=== PATIENT | male | born 1995 | race African-American/Black ===

== ENCOUNTER 2018-09-13 14:58 | Emergency (ER) | payer SELFPAY ==
[2018-09-13 15:08] VITALS: BP 117/67
[2018-09-13] MEDS ORDERED: AZITHROMYCIN 250 MG TABLET PO ONE (15:21)
[2018-09-13] MEDS ORDERED: LIDOCAINE 1% INJ-PF (10 MG/ML) 30 ML SDV INJ ONE (15:21)
[2018-09-13] MEDS ORDERED: CEFTRIAXONE INJ 250 MG VIAL IM ONE (15:21)
--- NOTE | 2018-09-13 15:28 | ER Document Report ---
ED GI/ - General Chief Complaint: STD Exposure Stated Complaint: STD CHECK Time Seen by Provider: 09/13/18 15:11 Mode of Arrival: Ambulatory Information source: Patient Notes: 23-year-old man presents to ED for yellow-green discharge from his penis for 24 hours. He states he thinks he has a STD. He is alert and oriented respirations regular and unlabored speaking in full sentences walking with a even steady gait. He states there is a little pain with urination. TRAVEL OUTSIDE OF THE [place] IN LAST 30 DAYS: No - HPI Patient complains to provider of: Other - Now pain penile discharge Onset: Yesterday Timing/Duration: Gradual Quality of pain: Burning Severity at maximum: Mild Severity in ED: Mild Pain Level: 2 Location: Other - You were seen today for gout. Please take the second dose of colchicine that you were sent home with 1 hour after receiving yourfirst dose. Take ibuprofen 600 mg with Tylenol 1000 mg every 6 hours as needed for pain. Follow-up with your primary care doctor in the next several days. Return if you have fever greater than 100.4F, worsening pain, become unable to move the knee, or have any other symptoms that are worrisome to you. Associated symptoms: Penile discharge, Urinary frequency Exacerbated by: Other - Nation Relieved by: Denies Similar symptoms previously: No Recently seen / treated by doctor: No - Related Data Allergies/Adverse Reactions: No Known Allergies Allergy (Unverified 09/13/18 15:03) Past Medical History - General Information source: Patient - Social History Smoking Status: Current Every Day Smoker Cigarette use (# per day): Yes - 3-4-day Smoking Education Provided: Yes Frequency of alcohol use: Social Drug Abuse: None Lives with: Alone Family History: Reviewed & Not Pertinent Patient has suicidal ideation: No Patient has homicidal ideation: No - Medical History Medical History: Other - anemia - Past Medical History Cardiac Medical History: Reports: None Pulmonary Medical History: Reports: None EENT Medical History: Reports: None Neurological Medical History: Reports: None Endocrine Medical History: Reports: None Renal/ Medical History: Reports: None Malignancy Medical History: Reports None GI Medical History: Reports: None Musculoskeletal Medical History: Reports None Skin Medical History: Reports None Psychiatric Medical History: Reports: None Traumatic Medical History: Reports: None Infectious Medical History: Reports: None Surgical Hx: Negative Past Surgical History: Reports: None - Immunizations Immunizations up to date: Yes Hx Diphtheria, Pertussis, Tetanus Vaccination: Yes Review of Systems - Review of Systems Constitutional: No symptoms reported EENT: No symptoms reported Cardiovascular: No symptoms reported Respiratory: No symptoms reported Gastrointestinal: No symptoms reported Genitourinary: Burning, Frequency Male Genitourinary: Penile discharge Musculoskeletal: No symptoms reported Skin: No symptoms reported Hematologic/Lymphatic: No symptoms reported Neurological/Psychological: No symptoms reported -: Yes All other systems reviewed and negative Physical Exam - Vital signs Vitals: Temp Pulse Resp BP Pulse Ox 99.9 F 97 18 117/67 97 09/13/18 15:07 09/13/18 15:07 09/13/18 15:07 09/13/18 15:07 09/13/18 15:07 Interpretation: Normal - General General appearance: Appears well, Alert - HEENT Head: Normocephalic, Atraumatic Eyes: Normal Pupils: PERRL - Respiratory Respiratory status: No respiratory distress Chest status: Nontender Breath sounds: Normal Chest palpation: Normal - Cardiovascular Rhythm: Regular Heart sounds: Normal auscultation Murmur: No - Abdominal Inspection: Normal Distension: No distension Bowel sounds: Normal Tenderness: Nontender Organomegaly: No organomegaly - Genitourinary Inspection: Penile discharge Tenderness: Nontender - Green Cremasteric reflex: Normal Scrotum: Normal - Back Back: Normal, Nontender - Extremities General upper extremity: Normal inspection, Nontender, Normal color, Normal ROM , Normal temperature General lower extremity: Normal inspection, Nontender, Normal color, Normal ROM , Normal temperature, Normal weight bearing. No: Ever's sign - Neurological Neuro grossly intact: Yes Cognition: Normal Orientation: AAOx4 [place] Coma Scale Eye Opening: Spontaneous [place] Coma Scale Verbal: Oriented [place] Coma Scale Motor: Obeys Commands [place] Coma Scale Total: 15 Speech: Normal Motor strength normal: LUE, RUE, LLE, RLE Sensory: Normal - Psychological Associated symptoms: Normal affect, Normal mood - Skin Skin Temperature: Warm Skin Moisture: Dry Skin Color: Normal Course - Vital Signs Vital signs: Temp Pulse Resp BP Pulse Ox 99.9 F 97 18 117/67 97 09/13/18 15:07 09/13/18 15:07 09/13/18 15:07 09/13/18 15:07 09/13/18 15:07 - Laboratory Laboratory results interpreted by me: 09/13/18 09/13/18 15:21 15:21 Urine Urobilinogen 2.0 H N.gonorrhoeae DNA (PCR) DETECTED H Discharge - Discharge Clinical Impression: urithritis Condition: Stable Disposition: HOME, SELF-CARE Instructions: [facility] [place] Additional Instructions: Urethritis You have urethritis, an infection of the urethra. The usual symptoms are pain on urination and discharge. The infection is often caused by gonorrhea or chlamydia. Treatment is antibiotics. In addition, any sexual contacts should be evaluated by a physician as soon as possible. As this infection can be transmitted sexually, refrain from sexual activity until the infection is confirmed as healed by your physician. If gonorrhea or chlamydia is found on culture, the health department must be notified. Call the doctor at once if you develop difficulty passing your urine, high fever, rash, joint swelling, or other new symptoms. CEPHALOSPORINS: An antibiotic of the cephalosporin class has been prescribed. This type of antibiotic covers a wide variety of infections, including those of the skin, lungs, middle ear, and urinary tract. This antibiotic is somewhat similar to the penicillin family. In rare cases , a person who is allergic to penicillin will also be allergic to this medication. If you have had a severe allergic reaction to penicillin, and have not taken this antibiotic since that time, notify your doctor. Antibiotics which cover many germs ("broad spectrum" antibiotics) are more likely to cause diarrhea or "yeast" infections. Women prone to vaginal yeast problems may suffer an attack after taking this antibiotic. In infants, oral thrush (white spots "stuck" on the cheek) or yeast diaper rash may result. See your doctor if these problems occur. Call the doctor at once if you develop hives, itching, shortness of breath , or lightheadedness. AZITHROMYCIN: Azithromycin (Zithromax) is a broad spectrum antibiotic in the same class as erythromycin. It can treat a variety of bacterial infections, but is most frequently used for respiratory infections. Azithromycin is extremely long-lasting. It accumulates in body tissues and continues to kill bacteria for many days. In order to improve absorption, Azithromycin should be taken at least one hour before or two hours after a meal. It does not have the same strong tendency to upset the stomach as erythromycin and is usually very well tolerated. Patients who have had a rash or other true allergic reactions to erythromycin should not take this medication. Call if you develop gastrointestinal distress, severe diarrhea, rash, hives, itching, or shortness of breath. [phone] in about 2-3 hours to find out the results of your urine. No sex until you find out the results. Then if they are positive no sex for 10 days after both of you have been treated. Please practice safe sex after this that means please wear a condom with sexual intercourse. FOLLOW-UP CARE: If you have been referred to a physician for follow-up care, call the physician s office for an appointment as you were instructed or within the next two days. If you experience worsening or a significant change in your symptoms, notify the physician immediately or return to the Emergency Department at any time for re-evaluation. Forms: Smoking Cessation Education
[2018-09-13 15:49] LABS: APPEARANCE,URINE SLIGHTLY-CLOUDY; BILIRUBIN,URINE NEGATIVE (NEGATIVE); COLOR,URINE YELLOW; GLUCOSE, URINE NEGATIVE (NEGATIVE); KETONES,URINE NEGATIVE (NEGATIVE); LEUKOCYTE ESTERASE,URINE NEGATIVE (NEGATIVE); NITRITE,URINE NEGATIVE (NEGATIVE); PROTEIN,URINE NEGATIVE (NEGATIVE); URINE SPECIFIC GRAVITY 1.018
[2018-09-13 17:31] LABS: CHLAM PCR NOT DETECTED (NOT DETECT); GON PCR DETECTED (NOT DETECT)
== END 2018-09-13 16:40 | disposition home or self-care (01) ==
LOC: ER 14:58
DX: N34.2 Other urethritis (principal); Z20.2 Contact with and (suspected) exposure to infections with a predominantly sexual mode of transmission; R26.9 Unspecified abnormalities of gait and mobility; M10.9 Gout, unspecified; N48.89 Other specified disorders of penis; R36.9 Urethral discharge, unspecified; F17.210 Nicotine dependence, cigarettes, uncomplicated
CPT/HCPCS: 99283; 96372; 81001; 87491; 87591; J3490; J0696

== ENCOUNTER 2020-01-13 20:17 | Emergency (ER) | payer SELFPAY ==
--- NOTE | 2020-01-13 21:01 | ER Document Report ---
HPI - HPI Patient complains to provider of: Cough Time Seen by Provider: 01/13/20 20:57 Notes: 24-year-old male to the emergency department with cough, sore throat, congestion for the past 4 days. He states that he has had a temperature all the way up to 104 but he has been able to break that and has not had a fever in about a day. He states that he had a positive sick contact in someone with the flu. He denies any nausea, vomiting, diarrhea. He denies any abdominal pain he states that his chest is sore from coughing and also hurts with a big deep breath. He denies any production of sputum. He is a smoker. He has been trying Alyssa- [place] [id number] without any benefit. - CONSTITUTIONAL Constitutional: REPORTS: Fever, Chills - EENT EENT: REPORTS: Sore Throat, Nasal Drainage-Clear, Congestion. DENIES: Ear Pain - NEURO Neurology: REPORTS: Headache - CARDIOVASCULAR Cardiovascular: REPORTS: Chest pain - Tussive chest pain - RESPIRATORY Respiratory: REPORTS: Coughing. DENIES: Trouble Breathing - GASTROINTESTINAL Gastrointestinal: DENIES: Abdominal Pain, Nausea, Patient vomiting, Diarrhea - MUSCULOSKELETAL Notes: Body aches - DERM Skin Color: Normal Skin Problems: None Past Medical History - General Information source: Patient - Social History Smoking Status: Current Every Day Smoker Frequency of alcohol use: None Drug Abuse: None Family History: Reviewed & Not Pertinent Renal/ Medical History: Denies: Hx Peritoneal Dialysis - Immunizations Immunizations up to date: Yes Hx Diphtheria, Pertussis, Tetanus Vaccination: Yes Vertical Provider Document - CONSTITUTIONAL Agree With Documented VS: Yes Exam Limitations: No Limitations General Appearance: WD/WN, No Apparent Distress - INFECTION CONTROL TRAVEL OUTSIDE OF THE [place] IN LAST 30 DAYS: No - HEENT HEENT: Atraumatic, Normocephalic, PERRLA Notes: Mild injected posterior oropharynx most consistent with posterior cobblestoning. No tonsillar hypertrophy and no exudate. Airway is grossly patent. No Renaldo's angina. No drooling. No voice change. - NECK Neck: Normal Inspection, Supple - RESPIRATORY Notes: Decreased breath sounds throughout but with no wheezes, rhonchi, rales; no accessory muscle use. Patient can speak in full sentences. He is not in respiratory distress. - CARDIOVASCULAR Cardiovascular: Regular Rate, Regular Rhythm, No Murmur - GI/ABDOMEN Gastrointestinal: Abdomen Soft, Abdomen Non-Tender - BACK Back: Normal Inspection Notes: Nontender to palpation over the midline cervical, thoracic, lumbar spine. There is no step-off or deformity. Patient can ambulate without difficulty. - MUSCULOSKELETAL/EXTREMETIES Musculoskeletal/Extremeties: FROM - NEURO Level of Consciousness: Awake, Alert, Appropriate Motor/Sensory: No Motor Deficit, No Sensory Deficit, No Pronator Drift - DERM Integumentary: Warm, Dry, No Rash Course - Re-evaluation Re-evalutation: Chest x-ray prelim by me: no acute process Impression: Influenza, cough. There is no pneumonia on chest x-ray. Will send patient home with cough medicine, albuterol, Motrin. He agrees with this plan. - Vital Signs Vital signs: Temp Pulse Resp BP Pulse Ox 99.1 F 79 16 111/62 98 01/13/20 20:34 01/13/20 20:34 01/13/20 20:34 01/13/20 20:34 01/13/20 20:34 - Diagnostic Test Radiology reviewed: Image reviewed, Reports reviewed Discharge - Discharge Clinical Impression: Influenza, Cough Condition: Stable Disposition: HOME, SELF-CARE Instructions: Influenza (OM) Additional Instructions: PUSH FLUIDS. TAKE MEDICINES PRESCRIBED. RETURN IF WORSE. REST AT HOME. Prescriptions: Albuterol Sulfate [Albuterol Sulfate Hfa] 2 puff IH Q4H #1 hfa.aer.ad Ibuprofen [Motrin 800 mg Tablet] 800 mg PO Q8H PRN #30 tab PRN Reason: Promethazine/Dextromethorphan [Promethazine-Dm Syrup] 5 ml PO Q6H #120 ml Forms: Return to Work Referrals: [facility] [Provider Group] - Follow up in 3-5 days
[2020-01-13] MEDS ORDERED: IBUPROFEN 600 MG TABLET PO ONE (21:42)
[2020-01-13] MEDS ORDERED: ALBUTEROL SULFATE HFA (90 MCG/PUFF) 8 GM MDI (1 MDI/ER DISP) IH ONE (21:42)
--- NOTE | 2020-01-13 22:02 | RADIOLOGY REPORT (SQ) ---
EXAM DESCRIPTION: X-RAY CHEST 2 VIEWS CLINICAL HISTORY: 24 years Male cough, tussive chest pain COMPARISON: None TECHNIQUE: PA and lateral chest x-rays at 2131 hours on 01/13/2020. FINDINGS: The lungs are overinflated and clear. The costophrenic sulci are sharp. No pneumothorax. The heart is normal in size with normal pulmonary vascularity. The trachea is midline. No abnormalities of the pulmonary delmis, soft tissues or osseous structures are seen. IMPRESSION: Overinflated lungs may be related to asthma or reactive airway disease; otherwise, no active cardiopulmonary lesions.
[2020-01-13 22:16] VITALS: BP 105/54
== END 2020-01-13 22:15 | disposition home or self-care (01) ==
LOC: ER 20:17
DX: J11.1 Influenza due to unidentified influenza virus with other respiratory manifestations (principal); R05 Cough; R51 Headache; R07.9 Chest pain, unspecified; F17.200 Nicotine dependence, unspecified, uncomplicated
CPT/HCPCS: 99283; 71046; J3490